=== PATIENT | female | born 1960 | race African-American/Black ===

== ENCOUNTER → 2021-09-21 11:57 | Outpatient (CLI) | payer OTHER, SELFPAY ==
--- NOTE | ~2021-09-21 | XR_ITS ---
XR wrist RT min 3V DATE: 09/21/2021 12:55 INDICATION: Right wrist pain TECHNIQUE: 4 views COMPARISON: None FINDINGS: No fracture or dislocation, periosteal reaction or bone destruction. No erosive change or c hondrocalcinosis. IMPRESSION: No significant abnormality Reviewed, dictated and finalized at location B. IMPRESSION: No significant abnormality
== END ==
PROVIDERS: PCP Internal Medicine; Visit Provider Internal Medicine
DX: M25.531 Pain in right wrist (principal)
CPT/HCPCS: 73110